=== PATIENT | female | born 1955 | race Caucasian/White ===

== ENCOUNTER 2021-10-23 08:58 | Emergency (ER) | payer MEDICARE ==
[~2021-10-23] VITALS: Ht 157.4 cm; Wt 68.0 kg
[2021-10-23 09:04] VITALS: BP 152/75
[2021-10-23] MEDS ORDERED: NAPROXEN250 MG PO (10:02)
[2021-10-23] MEDS ORDERED: TYLENOL325 M1 PO (10:02)
[2021-10-23] MEDS ORDERED: VOLTAREN ARTHRI20 GM T (10:02)
== END 2021-10-23 10:09 | disposition home or self-care (01) ==
LOC: ED 08:58
DX: M16.11 Unilateral primary osteoarthritis, right hip (principal)